=== PATIENT | female | born 2000 | race African-American/Black ===

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

== ENCOUNTER → 2020-11-28 | Outpatient (REF) | payer MEDICAID, OTHER ==
[2020-11-28 16:08] LABS: HEMATOCRIT 33.3 % (36.0-47.0); MEAN CORPUSCULAR HEMOGLOBIN 28.6 pg (27.0-33.0); MEAN CORPUSCULAR VOLUME 86.7 fl (80.0-96.0); PLATELET COUNT, AUTOMATED 278 10^3/uL (150-450); RED BLOOD COUNT 3.84 10^6/uL (4.00-5.40); WHITE BLOOD COUNT 6.1 10^3/uL (4.0-10.0)
[2020-11-28 22:36] LABS: HIV 1&2 SCREEN CENTAUR NEGATIVE (NEGATIVE)
[2020-12-01 13:07] LABS: HEPATITIS C VIRUS ABY INDEX < 0.0 INDEX (<0.8)
== END ==
LOC: M PLALAB 14:00
PROVIDERS: ATTEND Obstetrics & Gynecology
DX: Z34.81 Encounter for supervision of other normal pregnancy, first trimester (principal); Z3A.08 8 weeks gestation of pregnancy
CPT/HCPCS: 36415; 85027; 86762; 86780; 86803; 86850; 86900; 86901; 87086; 87340; 87389; 87490; 87590; J2790

== ENCOUNTER → 2021-02-14 | Outpatient (CLI) | payer MEDICAID ==
--- NOTE | 2021-02-14 16:20 | REP ---
INDICATION: LEVEL II ANATOMY COMPARISON: None. TECHNIQUE: Transabdominal obstetrical ultrasound with color Doppler evaluation. FINDINGS: Examination demonstrates a single live intrauterine in transverse post presentation. motion is identified by technologist. Placenta is noted posteriorly and grade 0 without evidence for placenta previa or abruption. Amniotic fluid volume is normal. Cervix measures 4.1 cm in length and appears closed.. Gestational age by LMP 20 weeks 0 days with LJ 07/04/2021. Gestational age by current measurements 21 weeks 0 days with LJ 06/27/2021. FHR equals 132 beats per minute. Estimated weight 401 grams (52ndpercentile based on age by current measurements; 95th percentile based on age by LJ). Anatomical assessment demonstrates normal structures including cranium, choroid plexus, cavum, cerebellum/posterior fossa, facial features, lungs, diaphragm, stomach, cord insertion/three-vessel cord, kidneys/bladder, spine, and extremities. IMPRESSION: 1. Single live intrauterine in transverse lie. Estimated weight as described above. 2. Limited evaluation of the heart and ventricular outflow tracts. Remainder of the anatomical assessment is complete and normal. <Electronically signed by Mahamed Bautista > 02/14/21 [id number]
== END ==
LOC: M RAD 14:57
PROVIDERS: ATTEND Advanced Practice Midwife
DX: Z36.3 Encounter for antenatal screening for malformations (principal); Z3A.21 21 weeks gestation of pregnancy

== ENCOUNTER → 2021-02-21 | Outpatient (CLI) | payer MEDICAID | LOC: M WHC 08:45 | PROVIDERS: ATTEND Obstetrics & Gynecology | DX: Z36.89 Encounter for other specified antenatal screening (principal); Z3A.21 21 weeks gestation of pregnancy ==

== ENCOUNTER → 2021-03-14 | Outpatient (CLI) | payer MEDICAID ==
--- NOTE | 2021-03-14 15:32 | REP ---
INDICATION: F/U ANATOMY. SPECIFICALLY FOLLOW-UP HEART AND VENTRICULAR OUTFLOW TRACTS COMPARISON: 02/14/2021 TECHNIQUE: Transabdominal scanning FINDINGS: Multiple ultrasonographic images of the gravid uterus shows a single living intrauterine gestation in variable positions. Doppler interrogation of the heart shows a heart rate of 147 beats per minute. The placenta is posterior not low lying. The subjective amniotic fluid volume is within normal limits. BPD: 6 cm 24 weeks 3 days HC: 22.6 cm 24 weeks 4 days AC: 20.2 cm 24 weeks 6 days FL: 4.4 cm 24 weeks 4 days The estimated weight is 727 g which is at the 58th percentile for a 24 week 0 day gestational age. Four-chamber heart and ventricular outflow tracts were seen to be within normal limits. IMPRESSION: Single living intrauterine gestation as described above with an estimated gestational age of 24 weeks 4 days via composite criteria and an estimated date of delivery of 06/30/2021 by today's exam. <Electronically signed by Deion Thapa > 03/14/21 1521
== END ==
LOC: M WHC 14:30
PROVIDERS: ATTEND Obstetrics & Gynecology
DX: Z36.89 Encounter for other specified antenatal screening (principal); Z3A.21 21 weeks gestation of pregnancy

== ENCOUNTER → 2021-03-22 | Outpatient (REF) | payer MEDICAID, OTHER | LOC: M PLALAB 11:45 | PROVIDERS: ATTEND Obstetrics & Gynecology | DX: Z36.89 Encounter for other specified antenatal screening (principal); Z3A.25 25 weeks gestation of pregnancy ==

== ENCOUNTER → 2021-04-13 | Outpatient (CLI) | payer OTHER ==
[2021-04-13 13:31] LABS: HEMATOCRIT 29.1 % (36.0-47.0); HEMOGLOBIN 9.5 g/dl (12.0-15.5); MEAN CORPUSCULAR HEMOGLOBIN 29.7 pg (27.0-33.0); MEAN CORPUSCULAR HGB CONC 32.6 g/dl (32.0-36.5); MEAN CORPUSCULAR VOLUME 90.9 fl (80.0-96.0); PLATELET COUNT, AUTOMATED 234 10^3/uL (150-450); WHITE BLOOD COUNT 8.1 10^3/uL (4.0-10.0)
== END ==
LOC: M PLALAB 10:25
PROVIDERS: ATTEND Obstetrics & Gynecology
DX: Z34.82 Encounter for supervision of other normal pregnancy, second trimester (principal); Z3A.25 25 weeks gestation of pregnancy

== ENCOUNTER → 2021-06-05 | Outpatient (REF) | payer OTHER, MEDICAID | LOC: M SFHCPLAZ 12:49 | PROVIDERS: ATTEND Obstetrics & Gynecology | DX: Z36.89 Encounter for other specified antenatal screening (principal); Z3A.35 35 weeks gestation of pregnancy ==

== ENCOUNTER 2021-06-25 14:58 | Inpatient (IN) | payer MEDICAID, OTHER ==
[2021-06-25] VITALS (42 sets, daily range): BP systolic 97–158; BP diastolic 48–97
[~2021-06-25] VITALS: Ht 154.9 cm; Wt 73.5 kg
[2021-06-25] MEDS ORDERED: TRANEXAMIC ACID INJection 1,000 MG in NS 100 ML IV PRN (15:40)
[2021-06-25] MEDS ORDERED: CARBOPROST TROMETHAMINE 250 MCG/ML AMP IM PRN (15:40)
[2021-06-25] MEDS ORDERED: OXYTOCIN DRIP 30 UNITS in IV 1 EA IV PRN (15:40)
[2021-06-25] MEDS ORDERED: METHYLERGONOVINE MALEATE 0.2 MG/ML VIAL (J2210) IM PRN (15:40)
[2021-06-25] MEDS ORDERED: LIDOCAINE 1% MDV 20ML VIAL INFIL PRN (15:40)
--- NOTE | 2021-06-25 16:00 | HPEPDOC ---
Obstetrical History & Physical General Date of Admission Jun 25, 2021 at 15:37 Primary Care Physician: SVETA BLAKE CNM History of Present Illness Candace is a 20-year-old female who is a at 38 weeks gestation with an LJ of 07/04/2021, confirmed via first trimester ultrasound. She initiated care in the first trimester at [facility]. Her is complicated by anemia and tobacco use. Candace arrived to L & D triage with painful uterine contractions every 6 minutes, breathing through her contractions. Reports active mo vement. Denies leaking of fluid. Vaginal exam reveals 9cm, 100 %, and -1 station. SROM with large amount of clear fluid. Chief Complaint: Contractions, term Information Provided By: Patient Age: 20 : 1 Term: 0 Pre-term: 0 Abortions: 0 Livin Care Care: Good Care Dating Final EDC: Jul 04, 2021 Final EDC by: 1st trimester (US) LMP: Sep 27, 2020 EGA at Admission: 38.5 Antepartum Course Diagnos(e)s anemia, tobacco use Height (inches): 61 Pre- weight (lbs.): 128 Admission Weight (lbs.): 160 Change in Weight (lbs.): 32 Past Medical History Past Obstetrical History : Past Obstetrical History: [employer] History: No pertinent history Past Medical History Surgical History: Denies/None Family History Significant Family History: No pertinent family hx Social History Marital Status: Single Psychosocial History: No pertinent psych hx * Smoker: current smoker (1cig/day, was smoking 2-3 cig/day) Alcohol: Denies Drugs: denies Abuse Violence Screening Have you been hit/kicked/slapp: No Have you been sexually assault: No Imunizations Tdap status: current Allergies Coded Allergies: No Known Allergies (Verified , 03/28/03) Medications No Active Prescriptions or Reported Meds Physical Examination Physical Examination GENERAL: Alert and oriented times three. ABDOMEN: Gravid and non-tender to touch. FETUS: Is vertex (VTX) by sterile vaginal examination (SVE), fetus is vertex (VTX) by Davidson. LUNGS: breathing comfortably on room air, no use of accessory muscles. EXTREMITIES: No edema. Vital Signs/I&O Vital Signs Label Value Date Time Patient Temperature 97.7 degrees F 06/25/21 1514 Temperature Source Temporal 06/25/21 1514 Pulse 101 06/25/21 1514 Respiratory Rate 16 bpm 06/25/21 1514 Blood Pressure Assessment 136/80 (98) 06/25/21 1514 Source Automatic Cuff (NIBP) Bedside Pulse Oximetry 97 % 06/25/21 1514 Laboratory Data Urine Culture: No Growth Pertinent Laboratoy Data Blood Type: O- RBC Antibody Screen: Negative HIV: Negative Hepatitis B: Negative Hepatitis C: Negative Rapid Plasma Reagin: Nonreactive Rubella: Immune Chlamydia/Gonorrhea: Negative Group B Streptococcus: Negative Glucose Tolerance Test: 70 Anatomy Ultrasound Ultrasound Date: February 14, 2021 Placenta Location: Posterior Normal Anatomy: Yes Placenta Previa: No Steroid Therapy Steroid Therapy: No Vaginal Examination Dilation: 9 cm Effacement: 90% Station: -1 Cervical Consistency: Soft Cervical Position: Anterior Presentation: Cephalic presentation Assessment Heart Rate (FHR): 140 Variability: Moderate Accelerations: Positive Decelerations: Variable Tocometer Contractions: Yes Frequency: regular, every 3-7 min. Strength: palpated as moderate Multi-drug resistant Organism: No history of MDRO Assessment/Plan Assessment IUP at 36.5 weeks gestation active labor Category II FHR GBS negative. Plan Admit to L&D. OOB ad isma. Diet: regular now and clears if epidural. Group B Streptococcus (GBS) negative. Labs and intravenous (IV) per unit protocol. LR bolus of 800 cc. Anesthesia consult per patient's request. Anticipate normal spontaneous delivery (). C-S as appropriate. SVETA BLAKE CNM Jun 25, 2021 16:00
[2021-06-25 17:21] LABS: HEMATOCRIT 26.6 % (36.0-47.0); HEMOGLOBIN 8.6 g/dl (12.0-15.5); MEAN CORPUSCULAR HEMOGLOBIN 26.1 pg (27.0-33.0); MEAN CORPUSCULAR HGB CONC 32.3 g/dl (32.0-36.5); MEAN CORPUSCULAR VOLUME 80.9 fl (80.0-96.0); PLATELET COUNT, AUTOMATED 238 10^3/uL (150-450); RED BLOOD COUNT 3.29 10^6/uL (4.00-5.40); WHITE BLOOD COUNT 11.6 10^3/uL (4.0-10.0)
[2021-06-25] MEDS: LR 1,000 ML IV SCH (17:31)
[2021-06-25] MEDS ORDERED: FENTANYL 2MCG/ML ROPIVACAINE 0.2% IN 0.9% NACL 100ML IVBAG As Ordered ONE (17:33)
--- NOTE | 2021-06-25 17:59 | IPNPDOC ---
Obstetrical Progress Note Date of Service Jun 25, 2021 Subjective ambulating to bathroom, poor coping with contractions, requesting epidural for pain management Objective Vital Signs Date Time Temp Pulse Resp B/P (MAP) Pulse Ox O2 Delivery O2 Flow Rate FiO2 06/25/21 16:43 101 18 126/76 (93) 06/25/21 15:14 97.7 97 Room Air Assessment Heart Rate (FHR): 135 Variability: Moderate Decelerations: Early, Variable Heart Rate Tracing: Category II Tocometer Contractions: Yes (q2-6) Duration: less than 90 seconds Strength: palpated as strong Sterile Vaginal Examination Dilation: 8 cm Effacement (%): 100% Station: -1 Cervical Consistency: Soft Cervical Position: Anterior Postion/Presentation: Cephalic presentation Assessment and Plan Age: 20 : 1 Weeks & Days 38.5 Status: Reassuring Group B Streptococcus: Negative Anticipate: Vaginal Delivery SVETA BLAKE CNM Jun 25, 2021 17:59
[2021-06-25] MEDS ORDERED: OXYTOCIN DRIP 30 UNITS in IV 1 EA IV SCH (18:40)
[2021-06-25] MEDS ORDERED: LACTATED RINGER'S 1000 ML IV ONE (18:40)
[2021-06-25] MEDS ORDERED: ePHEDrine SULFATE 25 MG/5 ML(5MG/ML) SYRINGE IV PRN (18:45)
[2021-06-25] MEDS ORDERED: NALOXONE INJ 0.4MG/1ML VIAL (J2310 PER 1MG) IV PRN ×3 (18:45→20:50)
[2021-06-25] MEDS ORDERED: REFRIGERATOR IV KEYS XX PRN (18:45)
[2021-06-25] MEDS ORDERED: EPIDURAL/PCA KEYS XX PRN (18:45)
[2021-06-25] MEDS ORDERED: diphenhydrAMINE 50MG/ML VIAL (J1200) IV PRN ×2 (18:45→20:50)
[2021-06-25] MEDS ORDERED: ONDANSETRON 4MG/2ML VIAL IV PRN ×4 (18:45→21:50)
[2021-06-25] MEDS ORDERED: LACTATED RINGER'S 1000 ML IV PRN (18:45)
[2021-06-25] MEDS ORDERED: EPIDURAL COMMENT XX SCH (18:45)
[2021-06-25] MEDS ORDERED: FENTANYL/ROPIVACAINE/NACL BAG 100 ML EPIDURAL SCH (18:50)
[2021-06-25] MEDS ORDERED: CALCIUM CARBONATE 500 MG CHEW U/D PO PRN (19:10)
--- NOTE | 2021-06-25 19:20 | IPNPDOC ---
Obstetrical Progress Note Date of Service Jun 25, 2021 Subjective Patient reports she is comfortable with her epidural. Objective Vital Signs Date Time Temp Pulse Resp B/P (MAP) Pulse Ox O2 Delivery O2 Flow Rate FiO2 06/25/21 18:55 77 16 141/84 (103) 99 06/25/21 17:54 97.7 06/25/21 15:14 Room Air Assessment Heart Rate (FHR): 130 Variability: Minimal to moderate Accelerations: None Decelerations: Variable Heart Rate Tracing: Category II Tocometer Contractions: Yes Frequency: other (2-6 minutes) Sterile Vaginal Examination Dilation: 8 cm Effacement (%): 90% Station: -1 Cervical Consistency: Soft Cervical Position: Anterior Postion/Presentation: Cephalic presentation Assessment and Plan Age: 20 : 1 Term: 0 Pre-term: 0 Abortions: 0 Livin EGA at Admission: 38.5 Group B Streptococcus: Negative Anticipate: Vaginal Delivery Additional Comments Dr. Mckinnon notified of variable decelerations with contractions. Recommended amnioinfusion with continued variable decelerations. SVETA BLAKE CNM Jun 25, 2021 19:20
--- NOTE | 2021-06-25 19:43 | IPNPDOC ---
Obstetrical Progress Note Date of Service Jun 25, 2021 Subjective Coping well with contractions Objective Vital Signs Date Time Temp Pulse Resp B/P (MAP) Pulse Ox O2 Delivery O2 Flow Rate FiO2 06/25/21 18:55 77 16 141/84 (103) 99 06/25/21 17:54 97.7 06/25/21 15:14 Room Air Assessment Heart Rate (FHR): 125 Variability: Minimal to moderate Accelerations: None Decelerations: Variable Heart Rate Tracing: Category II Tocometer Contractions: Yes Frequency: every 2-5 min. Strength: palpated as strong Sterile Vaginal Examination Dilation: 8 cm Effacement (%): 100% Station: -1 Cervical Consistency: Soft Cervical Position: Anterior Postion/Presentation: Cephalic presentation Assessment and Plan Age: 20 : 1 Group B Streptococcus: Negative Additional Comments FSE placed due to difficulty monitoring vs maternal heart rate. SVETA BLAKE CNM Jun 25, 2021 19:43
[2021-06-25] MEDS ORDERED: BICITRA 30ML SOLN UDC As Ordered ONE (20:27)
[2021-06-25] MEDS ORDERED: AZITHROMYCIN INJ 500MG VIAL (J0456 PER 500MG) As Ordered ONE (20:29)
[2021-06-25] MEDS ORDERED: ceFAZolin SOD 2 GM in IV 1 EA IV ONE (20:30)
[2021-06-25] MEDS ORDERED: BICITRA 30ML SOLN UDC PO ONE (20:30)
[2021-06-25] MEDS ORDERED: AZITHROMYCIN INJ 500 MG, VIAL MATE ADAPTER 1 EACH in NS 250 ML IV ONE (20:30)
[2021-06-25] MEDS ORDERED: METOCLOPRAMIDE INJ 10MG/2ML VIAL (J2765 PER 1) IV PRN ×2 (20:50→21:45)
[2021-06-25] MEDS ORDERED: NALBUPHINE HCL 10 MG/ML AMP (J2300) IV PRN (20:50)
[2021-06-25 20:55] LABS: CORD GAS ABE V -5.9; CORD GAS HCO3 V 19.1 MEQ/L; CORD GAS O2 SAT V 84.9 %; CORD GAS PCO2 V 36.4 mmHg; CORD GAS PH V 7.337 UNITS; CORD GAS SBC V 19.4 MEQ/L; CORD GAS TCO2 V 20.2 MEQ/L
[2021-06-25] MEDS ORDERED: ONDANSETRON 4MG/2ML VIAL As Ordered ONE (20:55)
[2021-06-25] MEDS ORDERED: OXYTOCIN INJ 10 UNITS/ML VIAL (J2590) As Ordered ONE (20:55)
[2021-06-25] MEDS ORDERED: dexameTHASONE 4 MG/ML 1ML VIAL (J1100 PER 1MG) As Ordered ONE (20:55)
[2021-06-25] MEDS ORDERED: KETOROLAC 60MG 2ML VIAL As Ordered ONE (20:56)
[2021-06-25 20:58] LABS: CORD GAS ABE A -3.2; CORD GAS HCO3 A 23.5 MEQ/L; CORD GAS O2 SAT A 54.7 %; CORD GAS PCO2 A 47.8 mmHg; CORD GAS PH A 7.309 UNITS; CORD GAS PO2 A 23.4 mmHg; CORD GAS SBC A 20.8 MEQ/L; CORD GAS TCO2 A 24.9 MEQ/L
[2021-06-25] MEDS ORDERED: propofoL 200 MG/20 ML VIAL As Ordered ONE (20:59)
[2021-06-25] MEDS ORDERED: KETAMINE HCL 200 MG/20 ML VIAL As Ordered ONE (21:00)
[2021-06-25] MEDS ORDERED: fentaNYL 100 MCG/2 ML INJECTION (J3010) As Ordered ONE (21:00)
[2021-06-25] MEDS ORDERED: MORPHINE PRES-FREE INJ 10 MG/10 ML VIAL (J2274) As Ordered ONE (21:01)
[2021-06-25] MEDS ORDERED: OXYTOCIN 30 UNITS IN 0.9% NaCl 500ML IV BAG (J2590) As Ordered ONE (21:11)
[2021-06-25] MEDS ORDERED: METOCLOPRAMIDE INJ 10MG/2ML VIAL (J2765 PER 1) As Ordered ONE (21:19)
[2021-06-25] MEDS ORDERED: fentaNYL 100 MCG/2 ML INJECTION (J3010) IV PRN (21:45)
[2021-06-25] MEDS ORDERED: PERCOCET 5MG/325MG TAB PO PRN (21:45)
[2021-06-25] MEDS ORDERED: LR 1,000 ML IV SCH (21:45)
--- NOTE | 2021-06-25 21:49 | DNPDOC ---
[facility] Delivery Note Delivery Note DATE OF PROCEDURE: 06/25/2021 PREPROCEDURE DIAGNOSES: Nonreassuring heart tracing, category 3 POSTPROCEDURE DIAGNOSES: Same. PROCEDURE PERFORMED: Primary low transverse section. SURGEON: Tony Morillo MD INSPECTOR ALUMINUM BOAT: Safia Rubio CNM ANESTHESIA: Epidural ESTIMATED BLOOD LOSS: 500 IVF: 1900 cc of crystalloid UOP: 600 cc clear yellow urine OPERATIVE START TIME: 2034 OPERATIVE END TIME: 2114 TIME OF DELIVERY: 2037 COMPLICATIONS: None apparent INDICATION FOR PROCEDURE: Patient is a 20-year-old G 1, P 0 at 38w5d EGA who presented to labor and delivery in active labor was found to be 9cm dilated. She SROMed and her cervix was 8cm at that time. She got an epidural. FHT at the time was Cat II with recurrent variables but reassuring variability. Patient progressed to an anterior lip, however, baby had a decel to the 40s-50s which persisted despite multiple position changes. At this time the decision was made to proceed to an emergency . The patient was consented and the all teams were notified. FINDINGS: Single liveborn male fetus Apgars 9 and 9 at 1 and 5 minutes respectively weighing 3500 g SPECIMENS REMOVED: Placenta PROCEDURE NOTE: The patient was brought to the operating suite in stable condition for primary low transverse section with epidural anesthesia on board and an indwelling catheter in place in the bladder. The patient was placed supine on the operating room table and rolled to her left side with a wedge. The abdomen was prepped and draped in standard fashion for section. After testing with madie clamp, the patient did not have adequate anesthesia. Per the anesthesiologist, lidocaine was administered and the procedure was started. With the scalpel, a Pfannenstiel skin incision was made. Dissection was carried down sharply through the subcutaneous tissues to the underlying fascia. The fascia was knicked on either side of the midline and extended laterally using pick ups and curved Foss scissors. The inferior aspect of the fascial incision was grasped with kolker clamps and elevated off the underlying rectus muscle with a scalpel. This process was then repeated with the lower aspect of the fascial incision. The peritoneum was identified and entered bluntly and was bluntly stretched laterally and cephalad. With the scalpel, a low transverse hysterotomy was commenced. The serosa and myometrium were scored with the scalpel. The uterine incision was then extended laterally with the operators fingers. An intrauterine hand was placed and the head of the infant was brought up out of the pelvis into the uterine incision. With fundal pressure, the infant was delivered without difficulty. The cord was doubly clamped and transected. The was then handed off to the nursery personnel. The placenta was manually removed. The uterine cavity was then curetted with a dry sponge and freed of the remaining membranes. The edges of the uterine incision were grasped with madie clamps. The uterine incision was then closed in 2 layers of 0 Vicryl sutures. The pelvis and gutters were irrigated and suctioned and cleared of all blood and clots and amniotic fluid. The uterine incision was reinspected to assure hemostasis. The uterus, tubes and ovaries were inspected and were normal. Once we were satisfied with the hemostasis, attention was turned to closure of the abdominal incision. The fascia was closed in layers using 0-Vicryl sutures. The subcutaneous tissue was closed with 3-0 vicryl suture. The skin was closed with a subcuticular suture of 4-0 monocryl followed by, Steri-Strips and a optifoam dressing. The patient was moved to the recovery room in stable condition with the Bales catheter draining clear urine. Instruments, sponge and needle counts were not counted due to the stat nature of the procedure. An x-ray was performed prior to moving patient to PACU. TONY MORILLO MD Jun 25, 2021 21:49
[2021-06-25] MEDS ORDERED: MEASLES,MUMPS,RUBELLA VACCINE INJ (MMR-II) (90707) SC SCH (21:50)
[2021-06-25] MEDS ORDERED: SIMETHICONE 80MG CHEW TAB PO PRN (21:50)
[2021-06-25] MEDS ORDERED: LIDOCAINE 1% MDV 20ML VIAL INFIL ONE (21:50)
[2021-06-25] MEDS ORDERED: RHOGAM 300 MCG (1500 IU) INJ (J2790) IM SCH (21:50)
[2021-06-25] MEDS ORDERED: DOCUSATE SODIUM 100MG CAPSULE PO PRN (21:50)
[2021-06-25] MEDS ORDERED: LIDOCAINE 1% MDV 50ML VIAL SC ONE (22:25)
--- NOTE | 2021-06-25 23:38 | REPVR ---
PROCEDURE INFORMATION: Exam: XR Abdomen Exam date and time: 06/25/2021 9:40 PM Age: 20 years old Clinical indication: Screening exam; Post surgical status; Emergency / no count; Additional info: Stat case in L TECHNIQUE: Imaging protocol: XR of the abdomen. Views: Frontal supine view of the abdomen. 1 View. COMPARISON: No relevant prior studies available. FINDINGS: Gastrointestinal tract: Normal. No bowel dilation. Bones/joints: Unremarkable. IMPRESSION: No acute findings. Electronically signed by: Josiah Wells On 06/25/2021 23:38:32 PM
[2021-06-26] VITALS (15 sets, daily range): BP systolic 109–131; BP diastolic 56–69
[2021-06-26] MEDS ORDERED: oxyCODONE 5MG TAB PO PRN
[2021-06-26] MEDS: ACETAMINOPHEN 500 MG TAB PO SCH ×3 (00:12→12:00)
[2021-06-26] MEDS: LR 1,000 ML IV SCH ×2 (01:27→06:47)
[2021-06-26] MEDS ORDERED: ceFAZolin SOD 2 GM in IV 1 EA IV SCH (05:00)
[2021-06-26] MEDS ORDERED: LR 300 ML IV ONE (06:15)
[2021-06-26] MEDS: IBUPROFEN 800 MG TAB PO SCH ×2 (07:00→21:12)
[2021-06-26 08:04] LABS: HEMATOCRIT 21.7 % (36.0-47.0); MEAN CORPUSCULAR HEMOGLOBIN 25.5 pg (27.0-33.0); MEAN CORPUSCULAR HGB CONC 31.3 g/dl (32.0-36.5); MEAN CORPUSCULAR VOLUME 81.3 fl (80.0-96.0); PLATELET COUNT, AUTOMATED 185 10^3/uL (150-450); RED BLOOD COUNT 2.67 10^6/uL (4.00-5.40); WHITE BLOOD COUNT 13.8 10^3/uL (4.0-10.0)
[2021-06-26 08:12] LABS: HEMOGLOBIN 6.8 g/dl (12.0-15.5)
[2021-06-26] MEDS: PRENATAL VITAMINS CHEWABLE TABLET PO SCH (09:00)
[2021-06-26] MEDS ORDERED: diphenhydrAMINE 25MG CAP PO ONE (10:25)
[2021-06-26] MEDS ORDERED: ACETAMINOPHEN TAB 650MG DOSE (2X325MG) PO ONE (10:25)
--- NOTE | 2021-06-26 10:29 | IPNPDOC ---
Progress Note Date of Service: Jun 26, 2021 Day#: 1 Progress Note SUBJECT: Patient with nausea vomiting throughout the night. She has felt lightheaded and is remained in bed. Bales catheter still in place. Her pain is well controlled. Hemoglobin this morning 6.8 OBJECTIVE: VITAL SIGNS: Within normal limits, afebrile. Alert and oriented times three. Abdomen: Fundus firm at U-2. Soft, NTTP. Incision: dressed Ext: neg calf tenderness. ASSESSMENT: /postoperative day #1 status post delivery. Symptomatic anemia with hemoglobin of 6.8. PLAN: 1. Plan to transfuse 2 units of packed red blood cells. Plan has been discussed with patient and her mother. 2. Continue routine /postoperative care VS, I&O, 24H, Fishbone Vital Signs/I&O Vital Signs Date Time Temp Pulse Resp B/P (MAP) Pulse Ox O2 Delivery O2 Flow Rate FiO2 06/26/21 05:29 97.3 67 16 121/59 (79) 96 Room Air I&O- Last 24 Hours up to 6 AM 06/26/21 06:00 Intake Total 2602 ml Output Total 3750 ml Balance -1148 ml Laboratory Data 24H LABS Laboratory Tests 2 06/25/21 15:42: Serology Scanned Report Hepatitis B Testing 06/25/21 16:13: Nucleated Red Blood Cells % (auto) 0.0, Syphilis Serology NONREACTIVE 06/25/21 20:40: Cord Arterial Blood pH 7.309, Cord Arterial Blood PCO2 47.8, Cord Arterial Blood PO2 23.4, Cord Arterial Blood HCO3 23.5, Cord Arterial Blood Total CO2 24.9, Cord Arterial Blood Base Excess -3.2, Cord Arterial Base Excess (Standard 20.8, Cord Arterial Bld Oxygen Saturation 54.7 06/25/21 20:41: Cord Venous Blood pH 7.337, Cord Venous Blood PCO2 36.4, Cord Venous Blood PO2 42.0, Cord Venous Blood HCO3 19.1, Cord Venous Blood Total CO2 20.2, Cord Venous Base Excess (Actual) -5.9, Cord Venous Base Excess (Standard) 19.4, Cord Venous Blood Oxygen Saturation 84.9 06/26/21 07:32: Nucleated Red Blood Cells % (auto) 0.0 CBC/BMP Laboratory Tests 06/25/21 16:13 10/5/21 07:32 WARNER TRINH MD. Jun 26, 2021 10:29
[2021-06-27] MEDS: ACETAMINOPHEN 500 MG TAB PO SCH ×2 (00:57→06:38)
[2021-06-27 02:00] VITALS: BP 115/53
[2021-06-27] MEDS: IBUPROFEN 800 MG TAB PO SCH (05:30)
[2021-06-27 06:00] VITALS: BP 126/58
[2021-06-27] MEDS: PRENATAL VITAMINS CHEWABLE TABLET PO SCH (08:43)
[2021-06-27] MEDS ORDERED: INFLUENZA QUADRIVALENT PF VACCINE 0.5ML SYRINGE IM ONE (09:00)
[2021-06-27 09:29] LABS: HEMATOCRIT 27.1 % (36.0-47.0); HEMOGLOBIN 8.9 g/dl (12.0-15.5); MEAN CORPUSCULAR HEMOGLOBIN 27.2 pg (27.0-33.0); MEAN CORPUSCULAR HGB CONC 32.8 g/dl (32.0-36.5); MEAN CORPUSCULAR VOLUME 82.9 fl (80.0-96.0); PLATELET COUNT, AUTOMATED 196 10^3/uL (150-450); RED BLOOD COUNT 3.27 10^6/uL (4.00-5.40); WHITE BLOOD COUNT 13.2 10^3/uL (4.0-10.0)
[2021-06-27] MEDS ORDERED: DOCU100C16 PO (11:41)
[2021-06-27] MEDS ORDERED: OXYC-517 PO (11:41)
[2021-06-27] MEDS ORDERED: IBUP80TA PO (11:41)
--- NOTE | 2021-06-27 12:06 | DSES ---
DISCHARGE SUMMARY DATE OF ADMISSION: 06/25/2021 DATE OF DISCHARGE: 06/27/2021 DISCHARGE DIAGNOSIS: 1. Primary section, postop day #2 complicated by severe anemia due to a symptomatic low hemoglobin and hematocrit, now stable for discharge. SURGEON: Rachel Low M.D. INDUSTRIAL TRAINER: SVETA BLAKE CNM HISTORY: Candace is a 20-year-old 1 para 1-0-0-1 now who was admitted to Labor and Delivery in transition stage of labor. She did undergo a primary section due to heart rate Category 3, remote from delivery. Her surgery was uncomplicated. She delivered a live female weighing 3500 grams, Apgars were 9 and 9. Her estimated blood loss was 500 ml. Her postoperative course has been complicated by anemia. On admission, on 06/25/2021 she had a hemoglobin of 8.6, hematocrit of 26.6 and platelets were 238,000. Her postoperative CBC on 06/26 had a hemoglobin of 6.8 and hematocrit 21.7 and platelets 185,000. She did receive 2 units of packed red blood cells. Her CBC today is reflective of an increase. Her hemoglobin is 8.9, hematocrit 27.1, and platelets 196,000. She does report that she is feeling much better. She denies dizziness, palpitations or lightheadedness. She has been out of bed for self-care and joseluis-care. She does desire to get out of bed and shower today. Her pain has been well-managed with p.o. pain medications. She is voiding without difficulty and passing flatus, tolerating p.o. fluids and a regular diet. She does request discharge home. The has been discharged. OBJECTIVE: Vital signs are stable today, temperature is 97.3, pulse is 71, respirations are 18, blood pressure is 126/58. She is alert and oriented x3. She has been resting without problem. Breasts are soft and nontender. Nipples are intact. Fundus is firm at umbilicus. The incision with Optifoam dressing in place. There is no drainage observed. The perineum is intact. Lochial and rubra scant. Bilateral lower extremities with scant pitting edema. PLAN: Discharge the patient to home today. She is to follow-up at [facility] for a two week incision check and an eight week visit. E-prescriptions for oxycodone 5 mg q. 6 hours p.r.n. for pain as well as Ibuprofen 800 mg q. 8 hours for pain p.r.n. have been e-prescribed to [facility]. I did review discharge instructions that include breast care, incision care, joseluis-care, pelvic rest, activity and lifting restrictions. I reviewed access to care and dangers signs that she should report to her provider. All of her questions have been answered and she does request discharge home.
== END 2021-06-27 15:50 | disposition home or self-care (01) | DRG 540 ==
LOC: M LDO 14:58 → M LDI 15:37 → M OBS 22:52
PROVIDERS: ADMIT Advanced Practice Midwife; ATTEND Obstetrics & Gynecology
PROC: 10D00Z1 Extraction of Products of Conception, Low, Open Approach (ICD-10-PCS; principal; 2021-06-25 20:47)
PROC: 30233N1 Transfusion of Nonautologous Red Blood Cells into Peripheral Vein, Percutaneous Approach (ICD-10-PCS; 2021-06-26)
DX: O99.02 Anemia complicating childbirth (principal); D64.9 Anemia, unspecified; O99.334 Smoking (tobacco) complicating childbirth; F17.210 Nicotine dependence, cigarettes, uncomplicated; Z3A.38 38 weeks gestation of pregnancy; O76 Abnormality in fetal heart rate and rhythm complicating labor and delivery; Z37.0 Single live birth

== ENCOUNTER → 2023-02-24 | Outpatient (REF) | payer OTHER, MEDICAID ==
[~2023-02-24] MED LIST: DOCU100C16 PO; IBUP80TA PO; OXYC-517 PO
== END ==
LOC: M SFHCWAGY 18:09
PROVIDERS: ATTEND Nurse Practitioner Family
DX: Z12.4 Encounter for screening for malignant neoplasm of cervix (principal)

== ENCOUNTER → 2023-05-05 | Outpatient (CLI) | payer OTHER ==
[~2023-05-05] MED LIST changes: +IBUP-1022 PO; +METH-1164 PO
[2023-05-05 18:51] LABS: BASO % 0.4 % (0.0-1.0); EOS # 0.1 10^3/uL (0.0-0.5); HEMATOCRIT 40.6 % (36.0-47.0); HEMOGLOBIN 13.5 g/dl (12.0-15.5); LYMPH # 2.1 10^3/uL (1.5-5.0); LYMPH % 44.2 % (24.0-44.0); MEAN CORPUSCULAR HGB CONC 33.3 g/dl (32.0-36.5); MEAN CORPUSCULAR VOLUME 93.3 fl (80.0-96.0); MONO # 0.3 10^3/uL (0.0-0.8); MONO % 7.1 % (2.0-8.0); NEUTROPHILS # 2.2 10^3/uL (1.5-8.5); NEUTROPHILS % 47.1 % (36.0-66.0); PLATELET COUNT, AUTOMATED 246 10^3/uL (150-450); RED BLOOD COUNT 4.35 10^6/uL (4.00-5.40); WHITE BLOOD COUNT 4.8 10^3/uL (4.0-10.0)
[2023-05-05 19:20] LABS: ALBUMIN 4.4 G/DL (3.2-5.2); ALKALINE PHOSPHATASE 88 U/L (46-116); ALT/SGPT 20 U/L (7.0-40); AST/SGOT 10 U/L (<34); BILIRUBIN,TOTAL 0.8 MG/DL (0.3-1.2); BLOOD UREA NITROGEN 6 MG/DL (9-23); CALCIUM LEVEL 9.5 MG/DL (8.5-10.1); CARBON DIOXIDE LEVEL 27 MMOL/L (20-31); CHLORIDE LEVEL 106 MMOL/L (98-107); CREATININE FOR GFR 0.62 MG/DL (0.55-1.30); FERRITIN 19.7 NG/ML (7.3-270.7); GLOMERULAR FILTRATION RATE > 60.0 (>60); GLUCOSE, FASTING 79 MG/DL (60-100); IRON (FE) 153 UG/DL (50-170); POTASSIUM SERUM 4.5 MMOL/L (3.5-5.1); SODIUM LEVEL 141 MMOL/L (136-145); TOTAL PROTEIN 7.7 G/DL (5.7-8.2)
[2023-05-05 19:21] LABS: FREE T4 1.08 NG/DL (0.89-1.76); PERCENT SATURATION 40.4 % (13.2-45.0); THYROID STIMULATING HORMONE 1.213 uIU/ML (0.55-4.78); TOTAL IRON BINDING CAPACITY 379 UG/DL (250-425)
== END ==
LOC: M PLALAB 14:55
PROVIDERS: ATTEND Nurse Practitioner Family
DX: Z76.89 Persons encountering health services in other specified circumstances (principal); D64.9 Anemia, unspecified; R53.83 Other fatigue

== ENCOUNTER 2024-07-31 12:47 | Emergency (ER) | payer OTHER, SELFPAY ==
[~2024-07-31] VITALS: Ht 152.4 cm; Wt 56.5 kg
[2024-07-31 13:25] LABS: BASO % 0.4 % (0.0-1.0); EOS # 0.1 10^3/uL (0.0-0.5); EOS % 1.8 % (0.0-3.0); HEMATOCRIT 35.8 % (36.0-47.0); HEMOGLOBIN 12.3 g/dl (12.0-15.5); LYMPH # 1.8 10^3/uL (1.5-5.0); LYMPH % 35.6 % (24.0-44.0); MEAN CORPUSCULAR HEMOGLOBIN 29.7 pg (27.0-33.0); MEAN CORPUSCULAR HGB CONC 34.4 g/dl (32.0-36.5); MEAN CORPUSCULAR VOLUME 86.5 fl (80.0-96.0); MONO # 0.5 10^3/uL (0.0-0.8); NEUTROPHILS # 2.7 10^3/uL (1.5-8.5); PLATELET COUNT, AUTOMATED 301 10^3/uL (150-450); RED BLOOD COUNT 4.14 10^6/uL (4.00-5.40); WHITE BLOOD COUNT 5.1 10^3/uL (4.0-10.0)
[2024-07-31 14:00] LABS: BLOOD UREA NITROGEN 6 MG/DL (9-23); CALCIUM LEVEL 9.4 MG/DL (8.5-10.1); CARBON DIOXIDE LEVEL 25 MMOL/L (20-31); CHLORIDE LEVEL 109 MMOL/L (98-107); CREATININE FOR GFR 0.66 MG/DL (0.55-1.30); GLOMERULAR FILTRATION RATE > 60.0 (>60); GLUCOSE, FASTING 79 MG/DL (60-100); HCG, SERUM QUANTITATIVE 3.5 MIU/ML (<4.2); POTASSIUM SERUM 3.7 MMOL/L (3.5-5.1); SODIUM LEVEL 141 MMOL/L (136-145)
[2024-07-31] MEDS: RHOGAM 300MCG (1500IU) INJ IM ONE (15:15)
[2024-07-31 16:13] VITALS: BP 122/73; TEMP 98.7; O2SAT 100
== END 2024-07-31 16:15 | disposition home or self-care (01) ==
LOC: M ED 12:47
DX: N93.9 Abnormal uterine and vaginal bleeding, unspecified (principal); D50.9 Iron deficiency anemia, unspecified; F41.9 Anxiety disorder, unspecified; Z91.040 Latex allergy status; N83.201 Unspecified ovarian cyst, right side
CPT/HCPCS: 76856; 80048; 84702; 85025; 86850; 86900; 86901; 93976; 96372; 99284; J2790

== ENCOUNTER → 2024-11-16 | Outpatient (CLI) | payer OTHER ==
[2024-11-16 18:04] LABS: HEMATOCRIT 29.6 % (36.0-47.0); HEMOGLOBIN 10.2 g/dl (12.0-15.5); MEAN CORPUSCULAR HEMOGLOBIN 31.4 pg (27.0-33.0); MEAN CORPUSCULAR HGB CONC 34.5 g/dl (32.0-36.5); MEAN CORPUSCULAR VOLUME 91.1 fl (80.0-96.0); PLATELET COUNT, AUTOMATED 251 10^3/uL (150-450); RED BLOOD COUNT 3.25 10^6/uL (4.00-5.40); WHITE BLOOD COUNT 5.9 10^3/uL (4.0-10.0)
[2024-11-16 18:33] LABS: HIV 1&2 SCREEN NEGATIVE (NEGATIVE)
[2024-11-16 18:41] LABS: HEPATITIS C VIRUS ABY INDEX 0.12 INDEX (<0.8)
== END ==
LOC: M PLALAB 13:57
PROVIDERS: ATTEND Nurse Practitioner Family
DX: Z34.81 Encounter for supervision of other normal pregnancy, first trimester (principal)

== ENCOUNTER → 2024-12-14 | Outpatient (REF) | payer OTHER ==
[2024-12-14 18:53] LABS: Trichomonas vaginalis (AMP) NOT DETECTED (NEGATIVE)
[2024-12-14 19:16] LABS: GC DNA AMPLIFICATION NEGATIVE (NEGATIVE)
== END ==
LOC: M PLALAB 14:27
PROVIDERS: ATTEND Nurse Practitioner Family
DX: Z34.81 Encounter for supervision of other normal pregnancy, first trimester (principal)

== ENCOUNTER → 2024-12-16 | Outpatient (CLI) | payer OTHER | LOC: M WHC 13:17 | PROVIDERS: ATTEND Nurse Practitioner Family | DX: Z34.80 Encounter for supervision of other normal pregnancy, unspecified trimester (principal) ==

== ENCOUNTER → 2025-02-01 | Outpatient (CLI) | payer OTHER ==
[2025-02-01 13:29] LABS: HEMATOCRIT 31.9 % (36.0-47.0); HEMOGLOBIN 10.3 g/dl (12.0-15.5); MEAN CORPUSCULAR HEMOGLOBIN 29.5 pg (27.0-33.0); MEAN CORPUSCULAR HGB CONC 32.3 g/dl (32.0-36.5); MEAN CORPUSCULAR VOLUME 91.4 fl (80.0-96.0); PLATELET COUNT, AUTOMATED 259 10^3/uL (150-450); RED BLOOD COUNT 3.49 10^6/uL (4.00-5.40); WHITE BLOOD COUNT 5.9 10^3/uL (4.0-10.0)
[2025-02-01 13:35] LABS: GLUCOSE CHALLENGE TEST 1 HOUR 72 MG/DL (LESS THAN 140)
[2025-02-01 14:03] LABS: HIV 1&2 SCREEN NEGATIVE (NEGATIVE)
[2025-02-01 14:09] LABS: HEPATITIS C VIRUS ABY INDEX 0.09 INDEX (<0.8)
[2025-02-01 14:38] LABS: Trichomonas vaginalis (AMP) NOT DETECTED (NEGATIVE)
[2025-02-01 15:01] LABS: GC DNA AMPLIFICATION NEGATIVE (NEGATIVE)
== END ==
LOC: M PLALAB 09:10
PROVIDERS: ATTEND Nurse Practitioner Family
DX: Z34.80 Encounter for supervision of other normal pregnancy, unspecified trimester (principal)

== ENCOUNTER → 2025-04-07 | Outpatient (CLI) | payer OTHER ==
[2025-04-07 14:50] LABS: PLATELET COUNT, AUTOMATED 200 10^3/uL (150-450)
== END ==
LOC: M PLALAB 10:55
PROVIDERS: ATTEND Nurse Practitioner Family
DX: Z34.80 Encounter for supervision of other normal pregnancy, unspecified trimester (principal)

== ENCOUNTER 2025-04-22 08:37 | Outpatient (CLI) | payer OTHER, SELFPAY ==
[~2025-04-22] VITALS: Ht 154.9 cm; Wt 76.8 kg
[~2025-04-22 08:37] MED LIST changes: +ALBUTEROL SULFATE 2.5 MG/0.5 ML INH CONCENTRATE NEB SOLN INH PRN; +EPINEPHrine INJ 1 MG/ML 1ML AMP IM PRN; +diphenhydrAMINE 50 MG/ML VIAL IV PRN
[2025-04-22 08:45] VITALS: BP 121/65; O2SAT 98
[2025-04-22] MEDS: ACETAMINOPHEN 650MG PO PRIOR TO INFUSION PO ONE (08:56)
[2025-04-22] MEDS: diphenhydrAMINE 25MG PO PRIOR TO INFUSION PO ONE (08:56)
[2025-04-22] MEDS: IRON SUCROSE 500 MG in NS 250 ML OVER 4 HRS IV ONE (09:09)
[2025-04-22 10:00] VITALS: BP 119/69; O2SAT 99
[2025-04-22 11:00] VITALS: BP 120/74; O2SAT 98
[2025-04-22 12:00] VITALS: BP 108/57; O2SAT 97
[2025-04-22 13:30] VITALS: BP 113/56; O2SAT 98
== END 2025-04-22 13:30 | disposition home or self-care (01) ==
LOC: M INFU 08:37
PROVIDERS: ATTEND Nurse Practitioner Family
DX: D50.9 Iron deficiency anemia, unspecified (principal)
CPT/HCPCS: 96365; 96366; J1756